=== PATIENT | female | born 1990 | race American Indian/Alaskan Native ===

== ENCOUNTER 2017-10-28 21:35 | Outpatient (CLI) | payer MEDICAID ==
[2017-10-28 22:06] VITALS: BP 124/64
[2017-10-28] MEDS ORDERED: LACTATED RINGERS 500 ML IV ONE (22:42)
[2017-10-28 23:08] LABS: Bilirubin,Urine NEG (Negative); Blood,Urine NEG (Negative); Color,Urine Yellow (Yellow); Mucus,Urine FEW /HPF; Protein,Urine <15 mg/dL mg/dL (Negative); Urobilinogen,Urine < 2.0 mg/dL (<2.0)
== END 2017-10-28 23:52 | disposition home or self-care (01) ==
LOC: TRG 21:35
PROVIDERS: ATTEND Obstetrics & Gynecology
DX: O47.03 False labor before 37 completed weeks of gestation, third trimester (principal); O26.893 Other specified pregnancy related conditions, third trimester; Z3A.31 31 weeks gestation of pregnancy
CPT/HCPCS: 81001

== ENCOUNTER 2017-12-22 05:33 | Inpatient (IN) | payer MEDICAID ==
--- NOTE | 2017-12-20 15:14 | History and Physical Report ---
History of Present Illness Date of examination: 12/22/17 Chief complaint: scheduled History of present illness: Pt is a 27 year old -[place] female ENRICO 12/27/17 at 39w2d who presents for scheduled section secondary to previous x 1. Pt reports irregular contractions, and denies vaginal bleeding or leakage of fluid. She has had care at [facility] since 14 wks complicated by obesity, genital herpes without lesion or prodrome, hemorrhoids, h/o PIH in prior . She is GBS negative. Past History Past Medical History: other (Obesity) Past Surgical History: section [employer] History: herpes Family/Genetic History: hypertension Social history: no significant social history - Obstetrical History Expected Date of Delivery: 12/27/17 Actual Gestation: 39 Week(s) 0 Day(s) : 2 Para: 1 Hx # Term Pregnancies: 1 Number of Pregnancies: 0 Spontaneous Abortions: 0 Induced : 0 Number of Living Children: 1 Medications and Allergies Allergies Allergy/AdvReac Type Severity Reaction Status Date / Time No Known Allergies Allergy Unverified 10/28/17 22:41 Review of Systems All systems: negative - Physical Exam Breasts: Positive: deferred Abdomen: Positive: soft (obese ) Uterus: Positive: enlarged (gravid ) Extremities: Positive: normal - Obstetrical FHR: auscultation normal Uterine Contraction Monitor Mode: External Results All other labs normal. Assessment and Plan A: IUP at 39w2d Previous x 1 Genital Herpes GBS Negative H/o PIH in previous P: Proceed with repeat section and other indicated procedures.
[~2017-12-22 05:33] MED LIST: ANCEF/STERILE WATER 2 GM/20 ML 2 GM/20 ML SYRINGE IV NR; BICITRA PO ONE; PEPCID IV ONE; PITOCin/NS 20 UNIT/1000ML DRIP 20 UNITS/1,000 ML BAG IV SCH; REGLAN IV ONE
[2017-12-22] MEDS: LACTATED RINGERS 1,000 ML IV SCH ×2 (06:15→07:17)
[2017-12-22 06:41] LABS: Basophils % (Auto) 0.1 % (0.0-1.8); Eosinophils # (Auto) 0.1 K/mm3 (0.0-0.4); Eosinophils % (Auto) 0.8 % (0.0-4.3); Hematocrit 32.9 % (30.3-42.9); Hemoglobin 10.5 gm/dl (10.1-14.3); Lymphocytes # (Auto) 2.3 K/mm3 (1.2-5.4); Lymphocytes % (Auto) 21.1 % (13.4-35.0); Mean Corpuscular HGB Conc 32 % (30-34); Mean Corpuscular Volume 76 fl (79-97); Monocytes # (Auto) 0.5 K/mm3 (0.0-0.8); Monocytes % (Auto) 4.9 % (0.0-7.3); Platelet Count 330 K/mm3 (140-440); Red Blood Count 4.35 M/mm3 (3.65-5.03); Red Cell Distribution Width 15.5 % (13.2-15.2)
[2017-12-22 06:46] LABS: Mean Corpuscular Hemoglobin 24 pg (28-32)
--- NOTE | 2017-12-22 07:22 | Anesthesia Consultation ---
Anesthesia Consult and Med Hx Date of service: 12/22/17 - Airway Anesthetic Teeth Evaluation: Good ROM Head & Neck: Adequate Mental/Hyoid Distance: Adequate Mallampati Class: Class III Intubation Access Assessment: Possibly Difficult - Pre-Operative Health Status ASA Pre-Surgery Classification: ASA3 Proposed Anesthetic Plan: Epidural, Spinal - Pulmonary Hx Asthma: No - Cardiovascular System Hx Hypertension: No - Central Nervous System Hx Seizures: No Hx Psychiatric Problems: No - Endocrine Hx Renal Disease: No Hx Hypothyroidism: No Hx Hyperthyroidism: No - Hematic Hx Anemia: No Hx Sickle Cell Disease: No - Other Systems Hx Alcohol Use: No Hx Obesity: Yes (BMI 40.8)
[2017-12-22] MEDS ORDERED: BENADRYL IV PRN (07:23)
[2017-12-22] MEDS ORDERED: NARCAN 0.4 MG/1 ML IV PRN ×2 (07:23→11:16)
[2017-12-22] MEDS ORDERED: ZOFRAN IV PRN ×2 (07:23→11:16)
[2017-12-22] MEDS ORDERED: PHENERGAN PR PRN (07:23)
[2017-12-22] MEDS ORDERED: PHENERGAN PO PRN (07:23)
[2017-12-22] MEDS ORDERED: DILAUDID IV PRN (07:23)
--- NOTE | 2017-12-22 07:23 | Anesthesia Day of Surgery ---
Anesthesia Day of Surgery - Day of Surgery Patient Examined: Yes Patient H&P Reviewed: Yes Patient is NPO: Yes
[2017-12-22] MEDS ORDERED: SODIUM CHLORIDE FLUSH SYRINGE 10 ML IV NR (08:00)
[2017-12-22] MEDS ORDERED: NACL 0.9% IR ONE (08:16)
[2017-12-22] MEDS ORDERED: WATER FOR IRRIG STERILE IR ONE (08:16)
[2017-12-22] MEDS ORDERED: NEO SYNEPHRINE/NS Syringe(OR USE) IV ONE (08:21)
[2017-12-22] MEDS ORDERED: LACTATED RINGERS 1,000 ML ONE (08:21)
[2017-12-22] MEDS ORDERED: ASTRAMORPH PF 10MG/10ML ONE (08:43)
[2017-12-22] MEDS ORDERED: XYLOCAINE MPF 2% ONE (08:46)
--- NOTE | 2017-12-22 09:14 | Procedure Note ---
OB Delivery Note - Delivery Date of Delivery: 12/22/17 Surgeon: WILLEM KOHLI Estimated blood loss: 1000cc - Section Preop diagnosis: repeat Postop diagnosis: same section procedure: section, repeat low transverse Disposition: PACU Complications: none Narrative: Please see operative report. - A at 1 minute: 8 at 5 minutes: 9 Gender: Male (3798g (8lb 6oz) @ 0826 am)
--- NOTE | 2017-12-22 09:18 | Operative Report ---
Operative Report Operative Report: Date of procedure: December 22, 2017 Preoperative diagnosis: 1) IUP at 39w2d 2) Previous x 1 3) Morbid Obesity BMI 41 Postoperative diagnosis: Same Procedure: Repeat low transverse cesareans section Surgeon: Deja Eric M.D. Anesthesia: Spinal-Epidural Findings: 1) Viable male , Apgars 8 and 9, weight 3798g, (8 lb 6 oz) in cephalic presentation 2) Normal-appearing uterus ovaries and tubes Estimated blood loss: 1000 mL IV fluids: 2000 mL Urine output: 100 mL, clear at the end of the procedure Drains: Mcclellan to gravity Specimens: None Medications: Additional 20 units of pitocin in IVFs Complications: None. Counts correct x 3 Disposition: Stable to PACU Indication for procedure: Pt is a 27 year old at 39w2d with a h/o one previous who presents for repeat section. Operation in detail: After the risks, benefits, alternatives and complications were explained to the patient she gave informed consent for the procedure. She was subsequently taken to the operating room where spinal-epidural anesthesia was noted to be adequate. She was subsequently placed in the dorsal supine position with leftward tilt and prepped and draped in a normal sterile fashion. heart tones were noted to be in the 130s prior to incision. A timeout was performed. A Pfannenstiel skin incision was made with the knife and carried down to the layer of the fascia with the Bovie. The fascia was incised in the midline and the fascial incision was extended bilaterally with the Bovie. Attention was then turned to the superior aspect of the incision which was grasped with two Kochers, tented up, and dissected off the rectus muscles. Attention was then turned to the inferior aspect of the incision which was grasped with two Kochers , tented up and dissected off the rectus muscles. The rectus muscles were then in the midline. The peritoneum was then entered bluntly. The peritoneal incision was extended with good visualization of the bladder. The peritoneal incision was then stretched. An Alireza self-retaining retractor was placed for visualization. The bladder blade was placed. The vesicouterine peritoneum was grasped with smooth pickups and incised with Metzenbaum scissors. Metzenbaum scissors were used to extend the incision bilaterally. The bladder flap was then created digitally and the bladder blade was replaced. A transverse incision was made in the lower uterine segment with a knife and extended bilaterally with the bandage scissors. The head was delivered without difficulty followed by shoulders and body. was bulb suctioned at delivery. The cord was clamped and cut and the was handed to NICU staff in attendance. Cord blood was collected. The placenta was then delivered manually. The uterus was then exteriorized and cleared of all clots and debris. The hysterotomy was then reapproximated with 0 Vicryl in a running locked fashion. A second layer of the same suture was used in imbricating fashion. The hysterotomy was inspected and hemostasis was noted. The Alireza self-retaining retractor was removed. The gutters were irrigated and cleared of all clots and debris. The hysterotomy was again inspected and noted to be hemostatic. Surgicel was placed over the hysterotomy. Interceed was placed over the anterior surface of the uterus. The peritoneum was reapproximated with 2-0 Vicryl in a running fashion incorporating the rectus muscles. The fascia was reapproximated with 0 Vicryl in a running fashion. The subcutaneous tissue was reapproximated wtih 3-0 Vicryl in a running fashion. The skin was reapproximated with 4-0 Vicryl in a subcuticular fashion. The incision was then covered with steri strips and a pressure dressing. The procedure was then ended. The patient tolerated the procedure well and was taken to the PACU in stable condition. All instrument, lap, and needle counts were correct 3.
[2017-12-22] MEDS: TORADOL IV PRN ×3 (10:18→22:35)
[2017-12-22] MEDS ORDERED: TUCKS PAD TP PRN (11:16)
[2017-12-22] MEDS ORDERED: MORPHINE IV PRN ×2 (11:16)
[2017-12-22] MEDS ORDERED: MYLICON PO PRN (11:16)
[2017-12-22] MEDS ORDERED: SODIUM CHLORIDE FLUSH SYRINGE 10 ML IV SCH (11:16)
[2017-12-22] MEDS ORDERED: PITOCin/NS 20 UNIT/1000ML DRIP 20 UNITS/1,000 ML BAG IV SCH (11:16)
[2017-12-22] MEDS: D5LR 1,000 ML IV SCH ×2 (14:00→22:25)
[2017-12-22] MEDS: ANCEF/NS 1 GM/50 ML 1 GM/50 ML BAG IV SCH ×2 (14:33→22:25)
[2017-12-22 22:01] LABS: Hematocrit 25.6 % (30.3-42.9); Hemoglobin 8.7 gm/dl (10.1-14.3)
[2017-12-22] MEDS: MILK OF MAGNESIA PO SCH (22:26)
[2017-12-23] MEDS: PERCOCET 5/325 PO PRN ×3 (02:32→21:31)
[2017-12-23] MEDS ORDERED: BOOSTRIX IM ONE ×2 (06:00→22:00)
[2017-12-23] MEDS: MILK OF MAGNESIA PO SCH ×3 (06:27→21:46)
[2017-12-23] MEDS: LANSINOH TP PRN (06:28)
[2017-12-23] MEDS: MOTRIN PO PRN ×2 (06:28→13:24)
[2017-12-23] MEDS ORDERED: M-M-R II VACCINE SUB-Q ONE (09:19)
[2017-12-23] MEDS: FEOSOL PO SCH (10:12)
--- NOTE | 2017-12-23 12:38 | Progress Note ---
Assessment and Plan O; VSS AF PP H/H: 8.7/25.6 A: Stable POD #1 s/p Repeat C/S Anemia P: Iron BID Subjective - Subjective Date of service: 12/23/17 Patient reports: appetite normal, voiding normally, pain well controlled, flatus , ambulating normally : doing well Objective - Vital Signs Latest vital signs: Vital Signs Temp Pulse Resp BP BP Pulse Ox 12/23/17 07:57 98.7 F 78 18 90/52 97 12/23/17 04:15 98.4 F 70 18 97/60 12/22/17 23:30 98.1 F 66 18 101/51 12/22/17 21:35 99.1 F 69 20 103/58 12/22/17 16:53 98.4 F 18 108/61 Intake and Output 12/22/17 12/23/17 12/23/17 22:59 06:59 14:59 Intake Total 1050 600 Output Total 1300 1000 Balance -250 -400 Intake: IV 1050 ANCEF/NS 1 GM/50 ML 1 gm 50 In 50 ml @ 100 mls/hr IV Q8H FAM Rx#:[id number] D5lr 1,000 ml @ 125 mls/ 1000 hr IV DIRECT FAM Rx#: [id number] Intake, Free Water 600 Output: Urine 1300 1000 Indwelling Catheter 1300 1000 Other: Total, Output Amount 1300 1000 # Voids Void 1 - Exam Breasts: Present: deferred Abdomen: Present: normal appearance. Absent: soft, distention Uterus: Present: normal, firm, fundal height below umbilicus (3 below). Absent : bogginess Extremities: Present: normal, edema (trace) Incision: Present: normal, dry, intact, dressed - Labs Labs: Abnormal lab results 12/22/17 Range/Units 21:39 Hgb 8.7 L (10.1-14.3) gm/dl Hct 25.6 L D (30.3-42.9) %
[2017-12-24] MEDS: MILK OF MAGNESIA PO SCH ×2 (04:15→15:54)
[2017-12-24] MEDS: MOTRIN PO PRN ×3 (04:16→15:54)
--- NOTE | 2017-12-24 08:35 | Progress Note ---
Assessment and Plan A: Postoperative day #2 status post repeat section, Asymptomatic anemia P: Routine postoperative care. Anticipate discharge tomorrow. Subjective - Subjective Date of service: 12/24/17 Principal diagnosis: status post repeat section Interval history: No overnight attempts. Patient reports flatus. Pain well controlled. Patient reports: appetite normal, voiding normally, pain well controlled, flatus , ambulating normally, no bowel movement, no nauseated : doing well Objective - Vital Signs Latest vital signs: Vital Signs Temp Pulse Resp BP BP Pulse Ox 12/24/17 00:40 98.4 F 77 18 107/70 12/23/17 16:26 98.3 F 72 18 103/58 98 Intake and Output 12/23/17 12/24/17 12/24/17 22:59 06:59 14:59 Intake Total 920 240 Balance 920 240 Intake: Oral 320 Intake, Free Water 600 240 Other: Total, Intake Amount 320 # Voids Void 1 2 - Exam Breasts: Present: deferred Cardiovascular: Present: Regular rate Lungs: Present: Clear to auscultation Abdomen: Present: soft (obese), normal bowel sounds Uterus: Present: fundal height below umbilicus Extremities: Present: normal Incision: Present: dressed
[2017-12-24] MEDS: FEOSOL PO SCH (10:22)
--- NOTE | 2017-12-24 15:22 | Discharge Summary ---
Providers - Providers Date of Admission: 12/22/17 05:33 Date of discharge: 12/25/17 Attending physician: MONICA SANTOS MD 12/22/17 11:16 Consult to Correctional Supervisor Lieutenant [CONS] Routine Reason For Exam: Primary care physician: MONICA SANTOS MD Hospitalization Reason for admission: section Delivery: Procedure: section, repeat low transverse Procedure details: Please see operative report Other procedures: none complications: none Discharge diagnosis: IUP at term delivered baby: male Hospital course: The patient was admitted for repeat section which she tolerated well. Her postoperative course uncomplicated and she met discharge criteria on postoperative day #3. She will follow-up in the office in 2 weeks for an incision check. Condition at discharge: Stable Disposition: OR-01 TO HOME OR SELFCARE - Discharge Diagnoses (1) S/P section Status: Acute (2) Morbid obesity Status: Acute (3) Term of male Status: Acute (4) Anemia Status: Acute Qualifiers: Anemia type: unspecified type Qualified Code(s): D64.9 - Anemia, unspecified Plan - Discharge Medications Prescriptions: Ferrous Sulfate [Feosol 325 MG tab] 325 mg PO BID #60 tablet Ibuprofen [Motrin] 800 mg PO Q8HR PRN #30 tablet PRN Reason: Pain, Moderate (4-6) oxyCODONE /ACETAMINOPHEN [Percocet 5/325] 1 tab PO Q6HR PRN #40 tablet PRN Reason: Pain - Provider Discharge Summary Activity: routine, no sex for 6 weeks, no heavy lifting 4 weeks, no strenuous exercise Diet: routine Instructions: routine Additional instructions: [] Smoking cessation referral if applicable(refer to patient education folder for contact #) [] Refer to [facility] Booklet Call your doctor immediately for: * Fever > 100.5 * Heavy vaginal bleeding ( >1 pad per hour) * Severe persistent headache * Shortness of breath * Reddened, hot, painful area to leg or breast * Drainage or odor from incision. * Keep incision clean and dry at all times and follow doctor's instructions regarding bathing/showering - Follow up plan Follow up: MONICA SANTOS MD [Primary Care Provider] - 01/05/18 (Please call for an incision check appt )
[2017-12-25] MEDS: PERCOCET 5/325 PO PRN ×2 (01:08→09:50)
[2017-12-25] MEDS: MOTRIN PO PRN (05:53)
[2017-12-25 08:20] VITALS: BP 101/66
[2017-12-25] MEDS: FEOSOL PO SCH (09:50)
[2017-12-25] MEDS: LANSINOH TP PRN (12:38)
== END 2017-12-25 14:00 | disposition home or self-care (01) | DRG 765 ==
LOC: APU 05:33 → OB 11:09
PROVIDERS: ADMIT Obstetrics & Gynecology; ATTEND Obstetrics & Gynecology
PROC: 10D00Z1 Extraction of Products of Conception, Low, Open Approach (ICD-10-PCS; principal; 2017-12-22)
PROC: 3E0234Z Introduction of Serum, Toxoid and Vaccine into Muscle, Percutaneous Approach (ICD-10-PCS; 2017-12-23)
DX: O34.211 Maternal care for low transverse scar from previous cesarean delivery (principal); Z68.41 Body mass index [BMI] 40.0-44.9, adult; O98.32 Other infections with a predominantly sexual mode of transmission complicating childbirth; Z3A.39 39 weeks gestation of pregnancy; Z37.0 Single live birth; E66.01 Morbid (severe) obesity due to excess calories; Z71.3 Dietary counseling and surveillance; O99.214 Obesity complicating childbirth; Z82.49 Family history of ischemic heart disease and other diseases of the circulatory system; A60.00 Herpesviral infection of urogenital system, unspecified; O90.81 Anemia of the puerperium; D64.9 Anemia, unspecified; Z23 Encounter for immunization
CPT/HCPCS: 36415; 85014; 85018; 85025; 86850; 86900; 86901; 90471; 90715; 99211; A6250; C1765; G0463; J0690; J1885; J2274; J2370; J2405; J2590; J2765; J7120; J7121